=== PATIENT | female | born 1970 | race Caucasian/White ===

== ENCOUNTER 2017-06-01 18:58 | Emergency (ER) | payer OTHER ==
[2017-06-01 20:47] VITALS: BP 145/93
== END 2017-06-01 20:47 | disposition home or self-care (01) ==
LOC: ED 18:58
DX: S80.01XA Contusion of right knee, initial encounter (principal); E11.9 Type 2 diabetes mellitus without complications; E03.9 Hypothyroidism, unspecified; Z88.8 Allergy status to other drugs, medicaments and biological substances; W17.89XA Other fall from one level to another, initial encounter; Y93.89 Activity, other specified; Y99.8 Other external cause status; Y92.89 Other specified places as the place of occurrence of the external cause
CPT/HCPCS: J1885

== ENCOUNTER → 2017-08-29 | Outpatient (CLI) | payer OTHER | END | disposition home or self-care (01) | LOC: CT 11:45 | PROC: BW2F1ZZ Computerized Tomography (CT Scan) of Neck using Low Osmolar Contrast (ICD-10-PCS; principal; 2017-08-29) | DX: M54.2 Cervicalgia (principal) | CPT/HCPCS: Q9967 ==

== ENCOUNTER 2017-11-10 16:58 | Emergency (ER) | payer OTHER ==
[~2017-11-10] VITALS: Ht 160 cm; Wt 115.2 kg
[2017-11-10 17:51] VITALS: BP 157/126; Ht 160 cm; Wt 115.2 kg
== END 2017-11-10 21:00 | disposition left against medical advice (07) ==
LOC: ED 16:58
DX: Z53.21 Procedure and treatment not carried out due to patient leaving prior to being seen by health care provider (principal)

== ENCOUNTER 2018-11-15 17:07 | Emergency (ER) | payer OTHER ==
[~2018-11-15] VITALS: Ht 160 cm; Wt 104.3 kg
[2018-11-15 17:12] VITALS: Ht 160 cm; Wt 104.3 kg
[2018-11-15 18:28] VITALS: BP 149/99
== END 2018-11-15 18:28 | disposition home or self-care (01) ==
LOC: ED 17:07
DX: S93.402A Sprain of unspecified ligament of left ankle, initial encounter (principal); E11.9 Type 2 diabetes mellitus without complications; E03.9 Hypothyroidism, unspecified; Z86.2 Personal history of diseases of the blood and blood-forming organs and certain disorders involving the immune mechanism; Z88.6 Allergy status to analgesic agent; X50.1XXA Overexertion from prolonged static or awkward postures, initial encounter; Y93.89 Activity, other specified; Y92.89 Other specified places as the place of occurrence of the external cause; Y99.8 Other external cause status

== ENCOUNTER 2019-08-08 23:41 | Emergency (ER) | payer OTHER ==
[~2019-08-08] VITALS: Ht 160 cm; Wt 107.5 kg
[2019-08-08 23:49] VITALS: Ht 160 cm; Wt 107.5 kg
[2019-08-09 04:01] VITALS: BP 144/73
== END 2019-08-09 03:59 | disposition home or self-care (01) ==
LOC: ED 23:41
DX: S83.92XA Sprain of unspecified site of left knee, initial encounter (principal); E78.00 Pure hypercholesterolemia, unspecified; E03.9 Hypothyroidism, unspecified; Z86.2 Personal history of diseases of the blood and blood-forming organs and certain disorders involving the immune mechanism; Z88.8 Allergy status to other drugs, medicaments and biological substances; X58.XXXA Exposure to other specified factors, initial encounter; Y93.02 Activity, running; Y92.89 Other specified places as the place of occurrence of the external cause; Y99.8 Other external cause status
CPT/HCPCS: J1885